=== PATIENT | male | born 1950 | race Caucasian/White ===

== ENCOUNTER 2017-11-22 15:05 | Emergency (ER) | payer BC, MEDICARE ==
[2017-11-22] MEDS ORDERED: ACETAMINOPHEN 500 MG TABLET PO ONE (15:19)
[2017-11-22] MEDS ORDERED: SODIUM CHLORIDE 0.9% 500 ML IV ONE (15:19)
[2017-11-22] MEDS ORDERED: MORPHINE SULFATE 10 MG/ML VIAL IVP ONE (15:19)
[2017-11-22] MEDS ORDERED: DIAZEPAM 5 MG TABLET PO ONE (15:22)
--- NOTE | 2017-11-22 15:27 | Emergency Department Record ---
History of Present Illness - General Chief complaint: Extremity Problem Stated complaint: LT LEG PAIN,NUMBNESS AND WEAKNESS Time Seen by Provider: 11/22/17 15:08 Source: Patient, Family Mode of Arrival: Ambulatory Limitations: No limitations - History of Present Illness Initial comments: 67 yo male presents with lumbar pain that radiates down the left leg. The lumbar pain started about a week ago. He saw his chiropractor last Wednesday and today twice. The pain down the leg started on Wednesday. No trauma, fever or recent illness. The pain is sharp and radiates to the level of the ankle. When walking the pain causes his leg to give out. No foot drop, no swelling, no changes in bowel or bladder function. He has been having lumbar pain for many years that comes and goes. No PCP for the last 30 years. MD Complaint: Other -: Days(s) (5) Location: Left -: Yes Arthralgia Radiation: Proximal Quality: Aching, Sharp Consistency: Intermittent Improves with: Immobilization Worsens with: Palpation, Walking, Weight bearing Associated Symptoms: Denies other symptoms - Related Data Previous Rx's Medication Instructions Recorded Cyclobenzaprine HCl [Flexeril] 10 mg PO TID #20 tablet 11/22/17 Hydrocodone/APAP 5/325Mg [[place] 1 each PO Q6H #12 tab 11/22/17 5Mg/325Mg] Allergies Allergy/AdvReac Type Severity Reaction Status Date / Time acetaminophen Allergy FATIGUE Verified 11/22/17 15:25 cefaclor [From Ceclor] Allergy PT UNSURE Verified 11/22/17 15:25 OF REACTION cephalexin [From Keflex] Allergy DIARRHEA Verified 11/22/17 15:25 Penicillins Allergy HIVES Verified 11/22/17 15:25 polymyxin B [From Polytrim] Allergy SWOLLEN Verified 11/22/17 15:25 EYES propoxyphene Allergy PT UNSURE Verified 11/22/17 15:25 [From Darvocet-N] OF REACTION Sulfa (Sulfonamide Allergy PT UNSURE Verified 11/22/17 15:25 Antibiotics) OF REACTION trimethoprim [From Polytrim] Allergy SWOLLEN Verified 11/22/17 15:25 EYES steroids Allergy HYPERSENSIT Uncoded 11/22/17 15:25 IVITY Review of Systems Constitutional: Denies: Chills, Fever, Malaise, Weakness Eyes: Denies: Eye discharge ENT: Denies: Congestion, Throat pain Respiratory: Denies: Cough, Dyspnea Cardiovascular: Denies: Chest pain, Palpitations Endocrine: Denies: Fatigue Gastrointestinal: Denies: Abdominal pain, Diarrhea, Nausea, Vomiting Genitourinary: Denies: Dysuria, Frequency, Hematuria, Incontinence, Retention, Testicular pain, Urgency Musculoskeletal: Reports: As per HPI, Back pain. Denies: Neck pain Skin: Denies: Bruising, Change in color, Rash Neurological: Reports: Weakness. Denies: Abnormal gait, Confusion, Headache, Numbness, Paresthesias, Tingling, Tremors Psychiatric: Denies: Anxiety Hematological/Lymphatic: Denies: Blood Clots, Easy bleeding, Easy bruising, Swollen glands Physical Exam - General General Appearance: Alert, Oriented x3, Cooperative, No acute distress Limitations: No limitations - Head Head exam: Atraumatic, Normal inspection - Eye Eye exam: Normal appearance. negative: Conjunctival injection, Scleral icterus - ENT ENT exam: Normal exam, Mucous membranes moist Ear exam: Normal external inspection Nasal Exam: Normal inspection Mouth exam: Normal external inspection - Neck Neck exam: Normal inspection - Respiratory Respiratory exam: Normal lung sounds bilaterally. negative: Respiratory distress - Cardiovascular Cardiovascular Exam: Regular rate, Normal rhythm, Normal heart sounds - GI/Abdominal GI/Abdominal exam: Soft. negative: Distended, Guarding, Rebound, Rigid, Tenderness - Rectal Rectal exam: negative: Deferred - exam: negative: Deferred - Extremities Extremities exam: Normal inspection, Calf tenderness, Normal capillary refill, Pedal edema. negative: Full ROM, Joint swelling, Tenderness Image of Full Body: 1 - tender lumbar and left glutteal area, normal inspection - Back Back exam: Reports: Muscle spasm, Paraspinal tenderness, Tenderness, Vertebral tenderness (lower left lumbar). Denies: CVA tenderness (R) - Neurological Neurological exam: Alert, Oriented X3, Reflexes normal, Other (pain with straight leg raise, no foot drop, plantar and dorsiflexion are intact, quads intact, sensation intact to the left leg). negative: Motor sensory deficit, Normal gait (antalgic but no weakness) - Psychiatric Psychiatric exam: Normal affect, Normal mood - Skin Skin exam: Dry, Intact, Normal color, Warm Course - Reevaluation(s) Reevaluation #1: The initial examination is consistent with musculoskeletal in nature His strength and sensation are intact. No weakness. No reproducible numbness. No foot drop. No foot weakness with plantar or dorsiflexion, no quads weakness. The CBC was normal The CMP was normal 11/22/17 16:25 11/22/17 16:52 The XR demonstrated multilevel degenerative changes We discussed follow up with a PCP, reasons to be seen again and home care 11/22/17 17:02 Medical Decision Making - Lab Data Result diagrams: 11/22/17 15:20 11/22/17 15:20 Disposition Disposition: Discharge Clinical Impression: Sciatica Disposition: Home, Self-Care Condition: (1) Good Instructions: Sciatica (ED) Additional Instructions: Rest and avoid lifting and bending Call the [facility] for close follow up and a new family doctor Return or be seen if worse, weak, changes in bowel or bladder symptoms or any concerns Prescriptions: Cyclobenzaprine HCl [Flexeril] 10 mg PO TID #20 tablet Hydrocodone/APAP 5/325Mg [[place] 5Mg/325Mg] 1 each PO Q6H #12 tab Referrals: RUEL PRADO [MEDICAL DOCTOR] - Forms: Patient Portal Access Time of Disposition: 16:57 Quality - Quality Measures Quality Measures: N/A - Blood Pressure Screening Does Patient Have Any of the Following: No Blood Pressure Classification: Hypertensive Reading Systolic Measurement: 166 Diastolic Measurement: 97 Screening for High Blood Pressure: < Pre-Hypertensive BP, F/U Documented > [ [id number]] Pre-Hypertensive Follow-up Interventions: Referral to alternative/primary care provider.
[2017-11-22 15:34] LABS: GRAN % 59.8 % (47-80); HEMATOCRIT 43.5 % (42.0-52.0); HEMOGLOBIN 14.5 gm/dl (14.0-18.0); MEAN CORPUSCULAR HEMOGLOBIN 29.7 pg (27-33); MEAN CORPUSCULAR HGB CONC 33.3 g/dl (32-36); MEAN PLATELET VOLUME 9.3 fl (7.4-10.4); MONO % 9.2 % (0-9); PLATELET COUNT 183 K/uL (130-400); RED BLOOD COUNT 4.89 M/uL (4.40-5.70); RED CELL DISTRIBUTION WIDTH 13.2 % (11.5-14.5)
[2017-11-22 15:44] LABS: BLOOD UREA NITROGEN 15 mg/dL (8-23); CREATININE 0.9 mg/dL (0.7-1.2); EST GLOMERULAR FILTRATION RATE > 60 mL/min
[2017-11-22 15:45] LABS: TOTAL PROTEIN 6.7 g/dL (6.6-8.7)
[2017-11-22 15:47] LABS: GLUCOSE,RANDOM 113 mg/dL (74-109)
[2017-11-22 15:49] LABS: ALB/GLOB RATIO 1.9 (1.1-1.8); ALBUMIN 4.4 g/dL (4.0-5.0); ALT/SGPT 22 U/L (<41); AST/SGOT 17 U/L (10.0-50.0)
[2017-11-22 15:50] LABS: ALKALINE PHOSPHATASE 56 U/L (40-129)
[2017-11-22] MEDS ORDERED: KETOROLAC 30 MG/ML VIAL IVP ONE (16:25)
--- NOTE | 2017-11-23 09:42 | RADIOLOGY REPORT ---
EXAM: LUMBAR SPINE, FIVE VIEWS HISTORY: LUMBAR PAIN, LEFT HIP PAIN RADIATING DOWN LEFT LEG. NO KNOWN INJURY. TECHNIQUE: Five views of the lumbar spine were obtained. Comparison: None. FINDINGS: There is tilting of the spine to the right which may simply be due to positioning or spasm. Mild spurring scattered throughout the lumbar spine as well as in the visualized lower thoracic spine. Mild narrowing of the lumbosacral interspace. Elsewhere the lumbar interspaces appear relatively maintained. Some facet joint arthropathy in the lower lumbar spine. No definite fracture of the lumbar spine identified. IMPRESSION: 1. SOME MILD HYPERTROPHIC AND DEGENERATIVE CHANGES IN THE LUMBAR SPINE WITH MILD NARROWING OF THE LUMBOSACRAL INTERSPACE. 2. MILD SPURRING IN THE LOWER THORACIC SPINE WELL. 3. TILTING OF THE SPINE TO THE RIGHT. JOB NUMBER: [id number] MTDD
== END 2017-11-22 17:23 | disposition home or self-care (01) ==
LOC: ER 15:05
DX: M54.42 Lumbago with sciatica, left side (principal); M25.552 Pain in left hip
CPT/HCPCS: 99284 ×2; 96374; 96375; 85025; 80053; 72110; J3490; J1885; J2270